=== PATIENT | female | born 1980 | race Caucasian/White ===

== ENCOUNTER 2019-02-15 19:25 | Emergency (ER) | payer OTHER, SELFPAY ==
[2019-02-15 19:28] VITALS: BP 139/93; PULSE 97; RESP 16; TEMP 37.7; O2SAT 97; BMI 74.3
[2019-02-15] MEDS: CYCLOBENZAPRINE 10 MG TABLET PO (19:53)
[2019-02-15] MEDS: KETOROLAC 60 MG/2 ML VIAL IM (19:53)
--- NOTE | 2019-02-15 20:21 | PC.NURSE ---
Pt up to restroom. Pt required 1pa to stand from sitting on stretcher. Pt ambulated self to restroom, transfered self on and off toilet and ambulated self back to bed.
[2019-02-15] MEDS: HYDROCODONE/ACET 5/325 TABLET 1 TAB PO (20:30)
--- NOTE | 2019-02-15 20:52 | ED_ITS ---
HPI - Back Pain/Injury <KAMRYN JacomeBC - Last Filed: 02/15/19 20:56> General Chief Complaint: Back Pain/Injury Stated Complaint: back pain Time Seen by Provider: 02/15/19 19:37 Source: patient and family Mode of arrival: ambulatory Limitations: no limitations History of Present Illness HPI Narrative: The patient is a 38-year-old female with history of chronic back pain and bulging discs who presents with her father in law for chief complaint of low back pain. She states she has chronic back pain, with a scheduled cortisone injection next week. She states she had 2 bulging discs. She has had a back MRI earlier this week. She denies any numbness tingling incontinence bowel, incontinence of bladder or saddle anesthesia. She denies any fevers. She denies any dysuria. She denies any possibility of as she has an IUD and her has had a vasectomy. She states that she took ibuprofen this morning approximately 11:00 a.m.. She took Robaxin at 3:00 p.m.. She denies any falls or trauma. She states she is having muscle spasm after riding a bike while camping earlier today. Related Data Previous Rx's Medication Instructions Recorded cyclobenzaprine 10 mg PO TID PRN #30 tab 02/15/19 hydrocodone-acetaminophen 1 tab PO Q4-6H PRN #7 tab 02/15/19 Allergies Allergy/AdvReac Type Severity Reaction Status Date / Time No Known Drug Allergies Allergy Verified 02/15/19 19:52 Review of Systems <LONDON Jacome - Last Filed: 02/15/19 20:56> Review of Systems GENERAL: Denies chills, fatigue, malaise, fever, sweats. HEENT: Denies sinus pain, ear pain, sore throat, difficulty swallowing, dizziness. RESPIRATORY: Denies dyspnea, cough, wheezing, hemoptysis, sputum. CARDIOVASCULAR: Denies chest pain, palpitations, orthopnea, edema, GASTROINTESTINAL: Denies nausea, vomiting, abdominal pain, diarrhea, constipation, melena. : Denies dysuria, frequency, incontinence, hematuria, urinary retention. MUSCULOSKELETAL: See HPI SKIN: Denies rash, skin lesions, or other NEUROLOGIC: Denies weakness, headache, numbness, change in speech, confusion, seizures, incoordination. PSYCHIATRIC: No concerning psychosocial issues. 12 point review of systems is negative except for those stated above PFSH <LONDON Jacome - Last Filed: 02/15/19 20:56> Medical History Chronic back pain (Acute) IUD (intrauterine device) in place (Acute) Social History Smoking Status: Never smoker Social History Smoking Status: Never smoker Exam <LONDON Jacome - Last Filed: 02/15/19 20:56> Narrative Exam Narrative: GENERAL: This is a well-nourished, well-developed patient, in no acute distress HEAD: Atraumatic. Normocephalic. No temporal or scalp tenderness. EYES: Pupils equal round and reactive. Extraocular motions intact. No scleral icterus. No injection or drainage. ENT: Nose without bleeding, purulent drainage or septal hematoma. Throat without erythema, tonsillar hypertrophy or exudate. Uvula midline. Airway patent. NECK: Trachea midline. No JVD or lymphadenopathy. Supple, nontender, no meningeal signs. CARDIOVASCULAR: Regular rate and rhythm without murmurs, gallops, or rubs. RESPIRATORY: Clear to auscultation. Breath sounds equal bilaterally. No wheezes, rales, or rhonchi. GASTROINTESTINAL: Abdomen soft, non-tender, nondistended. No hepato- splenomegaly, or palpable masses. No guarding. EXTREMITIES: No clubbing, cyanosis, or edema. No joint tenderness, effusion, or edema noted. BACK: Nontender without deformity or crepitance. No flank tenderness. No palpation to CT or L-spine. Pain to palpation of bilateral paraspinal muscles and lumbar region. NEURO: AOx3. Strength is equal upper and lower extremities bilaterally. Cranial nerves grossly intact. Steady gait. SKIN: No rash or erythema. Initial Vital Signs Initial Vital Signs: Vital Signs Temperature 99.9 F H 02/15/19 19:28 Pulse Rate 97 H 02/15/19 19:28 Respiratory Rate 16 02/15/19 19:28 Blood Pressure 139/93 H 02/15/19 19:28 Pulse Oximetry 97 02/15/19 19:28 <Edie Menchaca DO - Last Filed: 02/16/19 02:33> Initial Vital Signs Initial Vital Signs: Vital Signs Temperature 99.9 F H 02/15/19 19:28 Pulse Rate 97 H 02/15/19 19:28 Respiratory Rate 16 02/15/19 19:28 Blood Pressure 139/93 H 02/15/19 19:28 Pulse Oximetry 97 02/15/19 19:28 Course <LONDON Jacome - Last Filed: 02/15/19 20:56> Orders Ordered: Discontinued Medications Hydrocodone Bitart/Acetaminophen ([place] 5/325) 1 tab PO NOW ONE Stop: 02/15/19 20:17 Last Admin: 02/15/19 20:30 Dose: 1 tab Hydrocodone Bitart/Acetaminophen (Vicodin Prepack) 1 bottle MISC SEEINSTR ONE Stop: 02/15/19 20:44 Last Admin: 02/15/19 21:10 Dose: 1 bottle Cyclobenzaprine HCl (Flexeril) 10 mg PO NOW ONE Stop: 02/15/19 19:49 Last Admin: 02/15/19 19:53 Dose: 10 mg Cyclobenzaprine HCl (Flexeril 10 Mg Prepack) 1 bottle MISC SEEINSTR ONE Stop: 02/15/19 20:44 Last Admin: 02/15/19 21:11 Dose: 1 bottle Ketorolac Tromethamine (Toradol) 60 mg IM NOW ONE Stop: 02/15/19 19:49 Last Admin: 02/15/19 19:53 Dose: 60 mg Vital Signs - 8 hr 02/15/19 19:28 02/15/19 21:23 Temperature 99.9 F H Pulse Rate 97 H 71 Respiratory Rate 16 15 Blood Pressure 139/93 H 126/83 Pulse Oximetry 97 96 <Edie Menchaca DO - Last Filed: 02/16/19 02:33> Orders Ordered: Discontinued Medications Hydrocodone Bitart/Acetaminophen ([place] 5/325) 1 tab PO NOW ONE Stop: 02/15/19 20:17 Last Admin: 02/15/19 20:30 Dose: 1 tab Hydrocodone Bitart/Acetaminophen (Vicodin Prepack) 1 bottle MISC SEEINSTR ONE Stop: 02/15/19 20:44 Last Admin: 02/15/19 21:10 Dose: 1 bottle Cyclobenzaprine HCl (Flexeril) 10 mg PO NOW ONE Stop: 02/15/19 19:49 Last Admin: 02/15/19 19:53 Dose: 10 mg Cyclobenzaprine HCl (Flexeril 10 Mg Prepack) 1 bottle MISC SEEINSTR ONE Stop: 02/15/19 20:44 Last Admin: 02/15/19 21:11 Dose: 1 bottle Ketorolac Tromethamine (Toradol) 60 mg IM NOW ONE Stop: 02/15/19 19:49 Last Admin: 02/15/19 19:53 Dose: 60 mg Vital Signs - 8 hr 02/15/19 19:28 02/15/19 21:23 Temperature 99.9 F H Pulse Rate 97 H 71 Respiratory Rate 16 15 Blood Pressure 139/93 H 126/83 Pulse Oximetry 97 96 MDM - Back Pain/Injury <LAVON Jacome-BC - Last Filed: 02/15/19 20:56> MDM Narrative Medical decision making narrative: The patient is a 38-year-old female who presents with a chief complaint of lower back pain. She has chronic lower back pain, is and is even scheduled for cortisone injections next week. She has no red flag symptoms. She states she has had plenty of imaging, and has no trauma so she does not need any more today. She was given Toradol, Flexeril and [place] in the emergency department good relief of pain. She has no acute findings on exam. I did discuss at length coming back to the ER for any acute concerns such as incontinence of bowel, incontinence of bladder or saddle anesthesia. I did discuss that Flexeril and Robaxin should not be combined. I discussed that [place] can be sedating and constipating. I encouraged the patient follow-up with PCP. No questions or concerns upon discharge. Discharge Plan Departure Patient Disposition: Home Clinical Impression: Lumbar back pain Discharge Date/Time: 02/15/19 21:28 Interventions: ED Discharge Assessment Last Done: 02/15/19 21:23 Instructions: DI for Low Back Pain, DI for Back Spasm, DI for Back Strain or Sprain Activity Restrictions/Additional Instructions: I have given you prescriptions for pain. Please follow up with her primary care provider. Be aware the Flexeril and [place] can be sedating. The [place] can also be constipating. Please come back to the emergency department for any acute concerns such as incontinence of bowel, incontinence of bladder or saddle anesthesia. Please follow up with PCP as planned. Prescriptions: New cyclobenzaprine 10 mg tablet 10 mg PO TID PRN (Reason: muscle spasm) Qty: 30 RF: 0 hydrocodone-acetaminophen 5-325 mg tablet 1 tab PO Q4-6H PRN (Reason: pain) Qty: 7 RF: 0 <Edie Menchaca DO - Last Filed: 02/16/19 02:33> [facility]fr[facility] ED Attending Pham Attestation: I was immediately available in the department for consultation. Documentation has been reviewed. I agree with assessment and plan.
[2019-02-15] MEDS: HYDROCODONE/ACET 5/325 PREPACK 1 BOTTLE MISC (21:10)
[2019-02-15] MEDS: CYCLOBENZAPRINE 10 MG PREPACK 1 BOTTLE MISC (21:11)
[2019-02-15 21:23] VITALS: BP 126/83; PULSE 71; RESP 15; O2SAT 96
== END 2019-02-15 21:28 | disposition home or self-care (01) ==
PROVIDERS: Emergency Provider Nurse Practitioner Family
DX: M54.5 Low back pain (principal); Y93.55 Activity, bike riding
CPT/HCPCS: 96372; 99282; 99283; J1885